=== PATIENT | female | born 1950 | race Caucasian/White ===

== ENCOUNTER 2018-01-12 13:26 | Outpatient (CLI) | payer MEDICARE ==
--- NOTE | 2018-01-12 17:31 | MMO ---
MAMMOGRAM DIGITAL SCREENING BILATERAL: DATE: 01/12/18 HISTORY: 67-year-old female with routine bilateral screening mammogram. COMPARISON: 01/02/17, 11/28/15, and 09/01/14. TECHNIQUE: Digital mammographic views. Computer-aided detection (CAD) utilized. FINDINGS: The breasts are heterogeneously dense, which may obscure small masses. There are bilateral breast imp lants, which further lower the sensitivity of mammography. There is no evidence of suspicious mass, s uspicious calcifications, or architectural distortion. There is no significant interval change since the prior mammogram. IMPRESSION: 1) BIRADS 1- Negative. 2) Recommendation: routine bilateral annual screening mammogram (unless the patient develops suspicio us clinical findings that would warrant earlier imaging follow up). nirmala [] POS: JOSE J
== END 2018-01-12 13:27 | disposition home or self-care (01) ==
LOC: SCSMAMMO 13:26
PROVIDERS: ATTEND Internal Medicine
DX: Z12.31 Encounter for screening mammogram for malignant neoplasm of breast (principal)
CPT/HCPCS: 77067

== ENCOUNTER 2023-07-24 13:57 | Outpatient (CLI) | payer MEDICARE, OTHER ==
[~2023-07-24 13:57] MED LIST: Iopamidol 370 76% 100 ML VIAL ONE
== END 2023-07-24 13:58 | disposition home or self-care (01) ==
LOC: BICCT 13:57
PROVIDERS: ATTEND Family Medicine
DX: R31.9 Hematuria, unspecified (principal); R91.8 Other nonspecific abnormal finding of lung field; I51.7 Cardiomegaly; N28.1 Cyst of kidney, acquired; K80.20 Calculus of gallbladder without cholecystitis without obstruction; K57.30 Diverticulosis of large intestine without perforation or abscess without bleeding
CPT/HCPCS: 74178; Q9967